=== PATIENT | female | born 1970 | race Caucasian/White ===

== ENCOUNTER 2020-09-07 14:40 | Outpatient (CLI) | payer SELFPAY ==
--- NOTE | 2020-09-07 15:17 | USCV_ITS ---
Roberta Benito Age: 49 Gender: F : 1970 Exam Date: 09/07/2020 15:39 Ordering Phys: Elsy Barton Technologist: Evelyne Calvert Exam Location: [facility] [place] [facility] [place]ication: pain in left leg HISTORY: Lower extremity pain. PROCEDURES: Venous duplex imaging was performed in only the left lower extremity. The following venous structures were evaluated: common femoral vein, profunda vein, proximal portion of the greater saphenous vein, superficial femoral vein, and the popliteal vein. In addition, the posterior tibial and peroneal trunk were evaluated. Serial compression, augmentation maneuvers, and spectral Doppler flow evaluation were performed. FINDINGS: DVT seen within the left lower extremity in the popliteal and peroneal veins CONCLUSIONS DVT Left popliteal and peroneal veins Patient transferred to ER for further evaluation at time of exam Deepak Sauceda MD (Electronically Signed) Final Date: 07 September 2020 15:56 S
== END 2020-09-07 14:41 | disposition home or self-care (01) ==
LOC: RAD 14:46
PROVIDERS: PCP Nurse Practitioner Family; Visit Provider Nurse Practitioner Family
DX: I82.452 Acute embolism and thrombosis of left peroneal vein; I82.432 Acute embolism and thrombosis of left popliteal vein
CPT/HCPCS: 93971

== ENCOUNTER 2020-09-07 15:47 | Emergency (ER) | payer SELFPAY ==
[2020-09-07 15:50] VITALS: BP 152/90; PULSE 99; RESP 15; TEMP 36.8; O2SAT 99; BMI 31.7
[2020-09-07 15:54] VITALS: BP 133/92; PULSE 97; PULSE 98; RESP 18; O2SAT 97
--- NOTE | 2020-09-07 16:01 | ED_ITS ---
HPI - Extremity Problem General: Chief complaint: Extremity Problem,Nontraumatic Stated complaint: blood clot in left leg Time Seen by Provider: 09/07/20 15:54 History of Present Illness: HPI Narrative: 43-year-old female was seen in primary care doctor's office today and sent for a venous duplex of the left lower leg. There is a moderate amount of swelling and some discomfort she denies any chest pain or shortness of breath vitals are stable she has normal oxygen saturation. She not previously had a DVT not on any anticoagulants the only thing she did recently was a 2-hour car ride. Swelling began over the last 4 days. MD Complaint: extremity swelling Onset (ago): day(s) (4) Pain Consistency: constant Location: left and lower extremity Quality: aching, dull and constant Radiation: none Relieving factors: elevation Exacerbating factors: weight bearing, walking and palpation Associated symptoms: Deny arthralgias, chest pain, fever(s), myalgias, rash or short of breath Review of Systems Const: Denies: fever(s) ENMT: Denies: throat pain, ear or mastoid pain, nasal discharge or nasal congestion Card: Denies: chest pain Resp: Denies: dyspnea, productive cough or non-productive cough GI: Denies: abdominal pain, nausea, vomiting, hematemesis, coffee ground emesis, diarrhea, constipation, bloating, hematochezia or melena : Denies: flank pain, difficulty voiding, dysuria, urinary frequency or urinary urgency Skin/Breast: Denies: rash PFSH ED PFSH: Social History Smoking and tobacco status: current every day smoker cigarettes Packs smoked per day: 0.25 Alcohol intake: current Alcohol intake frequency: few times a month Substance/Drug Use: current Substance/Drug use frequency: few times a month Substance/Drug use type: Marijuana Physical Exam Const: COMMON NORMALS: no acute distress GENERAL APPEARANCE: cooperative and comfortable ORIENTATION/CONSCIOUSNESS: Yes awake, Yes oriented to person, Yes oriented to place and Yes oriented to time HENMT: COMMON NORMALS: normocephalic, atraumatic and hearing grossly normal bilaterally HEAD & SCALP: normocephalic and atraumatic Neck/C-Spine: COMMON NORMALS: no JVD Resp: COMMON NORMALS: normal respiratory effort, No retractions, No use of accessory muscles and clear to auscultation bilaterally AUSCULTATION: clear to auscultation bilaterally Cardio: COMMON NORMALS: no JVD, regular rate, regular rhythm and No murmurs present (Cardio) RATE: regular rate RHYTHM: regular rhythm Extremity: NARRATIVE EXTREMITY EXAM: 2+ edema of the left lower leg. Positive Homans. Neuro: SENSORIUM/ORIENTATION: Yes oriented to person, Yes oriented to place and Yes oriented to time Skin: COMMON NORMALS: no rashes or lesions noted GENERAL SKIN EXAM: no rashes or lesions noted Course Vital Signs: Vital signs: Vital Signs Temperature 98.2 F 09/07/20 15:50 Pulse Rate 99 09/07/20 15:50 Respiratory Rate 15 09/07/20 15:50 Blood Pressure 152/90 09/07/20 15:50 Pulse Oximetry 99 09/07/20 15:50 MDM - Extremity (Nontraumatic) MDM Narrative: Medical decision making narrative: Definitive study is already been concluded. Is reviewed and is in the chart. Does show she has a DVT. We will start her on Eliquis. Follow-up with primary care return if develop shortness of breath or chest pain Discharge Plan Discharge Patient Disposition: Home Clinical Impression: Deep vein thrombosis of lower extremity Qualifiers: Affected thrombotic vein of extremity: popliteal Chronicity: acute Laterality: left Qualified Code(s): I82.432 - Acute embolism and thrombosis of left popliteal vein Condition: Stable Prescriptions: New Eliquis DVT-PE Treat 30D Start 5 mg (74 tabs) tablets,dose pack See Rx Instructions .ROUTE .COMPLEX Qty: 74 RF: 0 Discharge Orders: Discharge ED (Routine); Ordered 09/07/20 Ordered By: Terrance Wilkins Referrals: Elsy Barton ASSISTANT PRODUCTION EDITOR [Primary Care Provider] - Discharge Diet: Usual diet Discharge Activity: Increase activity as tolerated Activity Restrictions/Additional Instructions: Take Eliquis as prescribed on the package. Follow-up with your primary care doctor within the next 1 to 2 weeks for continuation of the Eliquis. You should anticipate being on the Eliquis for a minimum of 6 to 9 months. Coding Level of Care Code ED Control Equipment Electrician for Neftali Fwd Exam Detailed
[2020-09-07] MEDS: enoxaparin 100 mg/mL Syringe SUBCUT (16:19)
[2020-09-07 16:22] VITALS: BP 133/92; PULSE 96; RESP 18; TEMP 36.8; O2SAT 96
== END 2020-09-07 16:24 | disposition home or self-care (01) ==
LOC: ER 16:23
PROVIDERS: Emergency Provider Family Medicine; PCP Nurse Practitioner Family
DX: I82.432 Acute embolism and thrombosis of left popliteal vein (principal); F17.210 Nicotine dependence, cigarettes, uncomplicated
CPT/HCPCS: 12345; 96372; 99281; 99283; J1650

== ENCOUNTER → 2022-05-09 13:44 | Outpatient (BNVA) | payer MEDICAID, SELFPAY | PROVIDERS: PCP Nurse Practitioner Family; Visit Provider Thoracic Surgery (Cardiothoracic Vascular Surgery) | DX: I96 Gangrene, not elsewhere classified (principal); L97.822 Non-pressure chronic ulcer of other part of left lower leg with fat layer exposed | CPT/HCPCS: 99213 ==

== ENCOUNTER 2022-10-08 08:31 | Oncology outpatient (recurring) (ONCR) | payer MEDICAID, SELFPAY | END 2022-10-09 23:59 | disposition home or self-care (01) | PROVIDERS: PCP Nurse Practitioner Family; Visit Provider Internal Medicine Medical Oncology | DX: Z86.718 Personal history of other venous thrombosis and embolism (principal) ==

== ENCOUNTER 2022-10-15 13:01 | Oncology outpatient (recurring) (ONCR) | payer MEDICAID, SELFPAY ==
[2022-10-15 15:30] LABS: Basophils # 0.1 10^3/uL (0.0-0.1); Basophils % 0.5 %; Eosinophils # 0.2 10^3/uL (0.0-0.8); Eosinophils % 1.9 %; Hematocrit 41.9 % (37.0-47.0); Hemoglobin 13.2 g/dL (11.5-15.3); Lymphocytes # 2.5 10^3/uL (0.8-4.8); Lymphocytes % 26.9 %; Mean Corpuscular HGB Conc 31.5 g/dL (30.0-36.0); Mean Corpuscular Hemoglobin 30.8 pg (28.0-34.0); Mean Corpuscular Volume 97.9 fl (81-99); Mean Platelet Volume 9.7 fL (7.4-10.4); Monocytes # 0.5 10^3/uL (0.2-0.9); Monocytes % 5.1 %; Neutrophils # 6.03 10^3/uL (1.8-7.7); Neutrophils % 65.3 %; Nucleated Red Blood Cells % 0 %; Platelet Count 320 10^3/cmm (130-400); Red Blood Count 4.28 10^6/uL (4.1-5.3); Red Cell Distribution Width 12.3 % (12.1-15.1); White Blood Count 9.3 10^3/uL (4.0-10.0)
[2022-10-15 15:58] LABS: Alanine Aminotransferase 15 U/L (0-33); Albumin Level 3.7 g/dL (3.5-5.2); Alkaline Phosphatase 65 U/L (35-105); Anion Gap 14.6 (5-19); Aspartate Amino Transferase 14 U/L (0-32); Blood Urea Nitrogen 9 mg/dL (6-20); Carbon Dioxide 24 mmol/L (22-29); Chloride 104 mmol/L (98-107); Globulin 2.6 g/dL (1.3-4.6); Glomerular Filtration Rate 105.4 mL/min (90-130); Glucose 107 mg/dL (65-115); Osmolality Calculated 287 mOsm/kg (285-295); Potassium 3.6 mmol/L (3.5-5.1); Sodium 139 mmol/L (136-145); Thyroid Stimulating Hormone 0.57 uIU/mL (0.27-4.20); Total Bilirubin 0.2 mg/dL (0.15-1.2); Total Protein 6.3 g/dL (6.6-8.7)
[2022-10-18 02:20] LABS: CARDIOLIPIN AB (IGA) 2.6 APL-U/mL; CARDIOLIPIN AB (IGG) <2.0 GPL-U/mL; CARDIOLIPIN AB (IGM) <2.0 MPL-U/mL
[2022-10-18 03:44] LABS: PROTEIN C, ACTIVITY 146 % normal (70-180)
[2022-10-19 07:10] LABS: Antithrombin III Activity 109 % normal (80-135)
[2022-10-20 21:09] LABS: PROTHROMBIN (FACTOR II) 20210G NEGATIVE
[2022-10-20 22:44] LABS: Beta 2 Glycoprotein IGA 2.6 U/mL (<20.0); Beta 2 Glycoprotein IGG <2.0 U/mL (<20.0); Beta 2 Glycoprotein IGM <2.0 U/mL (<20.0)
[2022-10-22 17:40] LABS: Factor 5 Leiden Mutation NEGATIVE
== END 2022-11-09 23:59 | disposition home or self-care (01) ==
LOC: ONCMED 13:04
PROVIDERS: PCP Nurse Practitioner Family; Visit Provider Internal Medicine Medical Oncology
DX: I82.409 Acute embolism and thrombosis of unspecified deep veins of unspecified lower extremity (principal); R53.83 Other fatigue; Z79.01 Long term (current) use of anticoagulants
CPT/HCPCS: 36415; 80053; 81241; 84443; 85025; 85210; 85300; 85303; 86146; 86147

== ENCOUNTER 2023-07-29 03:05 | Emergency (ER) | payer MEDICAID, SELFPAY ==
[2023-07-29 03:14] VITALS: BP 108/72; PULSE 115; RESP 20; TEMP 37.8; O2SAT 97; BMI 25.8
--- NOTE | 2023-07-29 04:08 | USR_ITS ---
PROCEDURE INFORMATION: Exam: US Duplex Left Lower Extremity Veins, Limited Exam date and time: 07/29/2023 5:15 AM Age: 52 years old Clinical indication: Pain; Leg, upper and leg, lower; Left; Additional info: Thigh pain swelling HX dvt TECHNIQUE: Imaging protocol: Real-time duplex ultrasound of the left extremity with 2-D gasca scale, color Doppler flow and spectral waveform analysis including responses to compression and other maneuvers (when performed) with image documentation. Limited exam focused on the left lower extremity veins. COMPARISON: No relevant prior studies available. FINDINGS: Left deep veins: Unremarkable. The common femoral, femoral, proximal profunda femoral and popliteal veins are patent without thrombus. Normal Doppler waveforms. Normal compressibility and/or augmentation response. Superficial veins: Unremarkable. Saphenofemoral junction is patent without thrombus. Soft tissues: Unremarkable. US/CV venous duplex [facility] [id number] IMPRESSION: No evidence of deep vein thrombosis.
[2023-07-29 04:39] LABS: Basophils # 0.1 10^3/uL (0.0-0.1); Basophils % 0.5 %; Eosinophils % 0.1 %; Hematocrit 44.8 % (36-47); Mean Corpuscular HGB Conc 32.4 g/dL (30-55); Mean Corpuscular Hemoglobin 31.9 pg (27-33); Mean Corpuscular Volume 98.5 fl (85-98); Mean Platelet Volume 9.8 fL (7.4-10.4); Monocytes # 1.4 10^3/uL (0.2-0.9); Monocytes % 5.9 %; Neutrophils # 21.51 10^3/uL (1.8-7.7); Neutrophils % 88.6 %; Nucleated Red Blood Cells % 0 %; Platelet Count 264 10^3/cmm (157-399); Red Blood Count 4.55 10^6/uL (3.85-5.65); Red Cell Distribution Width 12.5 % (12.1-15.1); White Blood Count 24.27 10^3/uL (3.29-11.43)
[2023-07-29 04:40] VITALS: PULSE 106; RESP 18; O2SAT 98
--- NOTE | 2023-07-29 04:46 | ED_ITS ---
HPI - General Adult 2 General: Chief complaint: General Medical Stated complaint: Left leg pain, possible DVT , fever, chills Time Seen by Provider: 07/29/23 04:02 History of Present Illness: 52-year-old female with a history of DVT . She is on rivaroxaban she says. She complains of a couple of days of left lower extremity pain, mainly to her groin. She is also having fevers. She had some diarrhea yesterday. No cough. No other respiratory symptoms. No chest pain. She states she has been taking her xarelto as prescribed. Associated symptoms: Reports nausea and rash; Deny chest pain, confusion, dyspnea, headache(s), palpitations or vomiting Review of Systems 2 Const: Reports: fever(s) and chills; Denies: body aches Eyes: Denies: change in vision ENMT: Denies: throat pain Card: Denies: chest pain or palpitations Resp: Denies: dyspnea, productive cough, non-productive cough or wheezing GI: Reports: nausea and diarrhea; Denies: abdominal pain, vomiting or hematochezia : Denies: difficulty voiding Skin/Breast: Reports: rash and erythema (LLE) Neuro: Denies: headache(s), weakness in extremities, dizziness or confusion PFSH ED 2 PFSH: Medical History (Updated 07/29/23 @ 05:38 by Keon Cyr DO) Venous stasis dermatitis of left lower extremity Deep vein thrombosis of both lower extremities Surgical History (Updated 10/08/22 @ 09:27 by Andrade Nguyen MD) History of tubal ligation History of appendectomy (12/2021) Social History (Updated 10/08/22 @ 08:42 by Danica Key LPN) Smoking and tobacco/nicotine status: current every day tobacco/nicotine user cigarettes Packs smoked per day: 0.25 Years cigarettes smoked: 30 Alcohol intake: current Alcohol intake frequency: few times a month Substance/Drug Use: current Substance/Drug use frequency: few times a month Physical Exam 2 Const: COMMON NORMALS: no acute distress GENERAL APPEARANCE: cooperative and ill appearing (mildly); not frail appearing HENMT: COMMON NORMALS: normocephalic, atraumatic and Normal external nose present HEAD & SCALP: normocephalic and atraumatic FACE & SINUS: normal facial exam and face symmetric NOSE: Normal external nose present Eye: COMMON NORMALS: Equal, round and reactive pupils present and EOMs intact bilaterally PUPIL: Yes Equal, round and reactive pupils present Neck/C-Spine: GENERAL: Yes trachea midline Chest: CHEST: Yes Symmetrical chest wall rise Resp: COMMON NORMALS: normal respiratory effort, No retractions, No use of accessory muscles and clear to auscultation bilaterally AUSCULTATION: clear to auscultation bilaterally Cardio: COMMON NORMALS: regular rhythm RATE: tachycardic RHYTHM: regular rhythm GI: COMMON NORMALS: Normal to inspection, nondistended, normoactive bowel sounds present Extremity: NARRATIVE EXTREMITY EXAM: Examination of the left lower extremity reveals tenderness in the groin. There is some pain with hip movement. There is no deformity. Pulses are present. There is one plus edema bilaterally. It is symmetrical. Redness noted to thee this the left lower extremity. Warmth is maintained. Neuro: LEVI COMA SCALE: document GCS findings Levi coma scale eye opening: Spontaneous [place] coma scale verbal response: Orientated [place] coma scale motor response: Obey commands [place] coma scale total score: 15 S ENSORY EXAM: Yes extremities (intact) Psych: COMMON NORMALS: speech normal SPEECH: Yes normal speech Skin: COMMON NORMALS: no rashes or lesions noted GENERAL SKIN EXAM: no rashes or lesions noted Course 2 Vital Signs: Vital signs: Vital Signs Temperature 100.1 F H 07/29/23 03:14 Pulse Rate 113 H 07/29/23 06:20 Respiratory Rate 18 07/29/23 05:55 Blood Pressure 106/63 07/29/23 06:20 Pulse Oximetry 94 07/29/23 06:20 Oxygen Delivery Me thod Room Air 07/29/23 06:20 [facility] - General Adult Medical Decision Making Patient has a temperature 100.1. She is mildly tachycardic. She is not having chest pain. CBC shows a white blood cell count of 24. Otherwise not remarkable. Other labs are pending. Ultrasound of the right lower extremity is pending. There is no significant pain with hip movement. Ultrasound is negative for DVT. There are several swollen lymph nodes in the left inguinal region likely a source of her pain. With the rash associated to her lower extremity, increased white blood cell count, wouldn't indicate Cellulitis of the left lower extremity with lymphadenitis. We will treat with antibiotics. She has had vancomycin here. She will go home on doxycycline. Lab Data 07/29/23 04:26 07/29/23 06:02 Radiology Impressions Venous Duplex 07/29/23 04:08 IMPRESSION: No evidence of deep vein thrombosis. Laboratory Results WBC 24.27 10^3/uL (3.29-11.43) H 07/29/23 04:26 RBC 4.55 10^6/uL (3.85-5.65) 07/29/23 04:26 Hgb 14.50 g/dL (11.27-16.99) 07/29/23 04:26 Hct 44.8 % (36-47) 07/29/23 04:26 MCV 98.5 fl (85-98) H 07/29/23 04:26 MCH 31.9 pg (27-33) 07/29/23 04:26 MCHC 32.4 g/dL (30-55) 07/29/23 04:26 RDW 12.5 % (12.1-15.1) 07/29/23 04:26 Plt Count 264 10^3/cmm (157-399) 07/29/23 04:26 MPV 9.8 fL (7.4-10.4) 07/29/23 04:26 Neut % (Auto) 88.6 % 07/29/23 04:26 Lymph % (Auto) 4.0 % 07/29/23 04:26 [place] % (Auto) 5.9 % 07/29/23 04:26 Eos % (Auto) 0.1 % 07/29/23 04:26 Baso % (Auto) 0.5 % 07/29/23 04:26 Neut # (Auto) 21.51 10^3/uL (1.8-7.7) H 07/29/23 04:26 Lymph # (Auto) 1.0 10^3/uL (0.8-4.8) 07/29/23 04:26 [place] # (Auto) 1.4 10^3/uL (0.2-0.9) H 07/29/23 04:26 Eos # (Auto) 0.0 10^3/uL (0.0-0.8) 07/29/23 04:26 Baso # (Auto) 0.1 10^3/uL (0.0-0.1) 07/29/23 04:26 Nucleated RBC % (auto) 0 % 07/29/23 04:26 Nucleated RBCs # 0.0 /100WBC 07/29/23 04:26 Sodium 130 mmol/L (136-145) L 07/29/23 06:02 Potassium 3.8 mmol/L (3.5-5.1) 07/29/23 06:02 Chloride 96 mmol/L (98-107) L 07/29/23 06:02 Carbon Dioxide 23 mmol/L (22-29) 07/29/23 06:02 Anion Gap 14.8 (5-19) 07/29/23 06:02 BUN 12 mg/dL (6-20) 07/29/23 06:02 Creatinine 0.8 mg/dL (0.5-0.9) 07/29/23 06:02 GFR Calculation 75.6 mL/min (90-130) L 07/29/23 06:02 Glucose 106 mg/dL (65-115) 07/29/23 06:02 Calculated Osmolality 270 mOsm/kg (285-295) L 07/29/23 06:02 Lactic Acid 1.0 mmol/L (0.5-2.2) 07/29/23 05:00 Calcium 9.3 mg/dL (8.5-10.5) 07/29/23 06:02 Total Bilirubin 0.6 mg/dL (0.15-1.2) 07/29/23 06:02 AST 26 U/L (0-32) 07/29/23 06:02 ALT 33 U/L (0-33) 07/29/23 06:02 Alkaline Phosphatase 97 U/L (35-105) 07/29/23 06:02 C-Reactive Protein 66.9 mg/L (0.0-4.9) H 07/29/23 06:02 NT-Pro-B Natriuret Pep 90 pg/mL (0-125) 07/29/23 06:02 Total Protein 6.7 g/dL (6.6-8.7) 07/29/23 06:02 Albumin 3.8 g/dL (3.5-5.2) 07/29/23 06:02 Globulin 2.9 g/dL (1.3-4.6) 07/29/23 06:02 HCG, Qual Negative (Negative) 07/29/23 04:26 SARS-CoV-2 Ag (Rapid) negative (Negative) 07/29/23 05:00 All radiology interpretation(s) finalized by discharge Discharge Plan Discharge Patient Disposition: Home Clinical Impression: Cellulitis of left leg, Acute inguinal lymphadenitis Condition: Stable Prescriptions: New hydrocodone-acetaminophen 5-325 mg tablet 1 tab PO Q8H PRN (Reason: pain) Qty: 7 0RF doxycycline hyclate 100 mg tablet 100 mg PO BID 10 Days Qty: 20 0RF No Action Xarelto 10 mg tablet 10 mg PO DAILY furosemide [Lasix] 20 mg tablet 20 mg PO DAILY vitamin B complex Tablet 1 tab PO DAILY betamethasone valerate 0.1 % ointment 1 applic topical BID Qty: 45 0RF Rx Instructions: Apply twice daily to affected area no more than 2 weeks per month. Not for face or skin folds. Discharge Orders: Discharge ED (Routine); Ordered 07/29/23 Ordered By: Keon Cyr Patient Instructions: Cellulitis (ED), Adenitis (ED), Opioid Safety, Pain Management Activity Restrictions/Additional Instructions: Antibiotics as directed. Ice may help with pain. Keep leg elevated. See your doctor this week for follow-up. Return for continued fever despite 2-3 doses of antibiotics, worsening pain despite treatment, vomiting liquids or medications, other concerning symptoms. Coding Level of Care Code ED Surgical Tech for Neftali Fink
[2023-07-29 04:50] LABS: HCG, Serum Qual Negative (Negative)
--- NOTE | 2023-07-29 05:01 | PC.NURSE ---
pt placed in a gown at this time. pt was up to the bathroom but unable to give a urine sample.
[2023-07-29 05:34] LABS: SARS Covid-2 Antigen negative (Negative)
[2023-07-29 05:55] VITALS: BP 106/75; PULSE 113; RESP 18; O2SAT 95
[2023-07-29] MEDS: vancomycin 1,250 MG/250 ML PIGGYBACK 250 MG IV (06:02)
[2023-07-29 06:20] VITALS: BP 106/63; PULSE 113; O2SAT 94
[2023-07-29 06:47] LABS: Alanine Aminotransferase 33 U/L (0-33); Albumin Level 3.8 g/dL (3.5-5.2); Alkaline Phosphatase 97 U/L (35-105); Anion Gap 14.8 (5-19); Aspartate Amino Transferase 26 U/L (0-32); Blood Urea Nitrogen 12 mg/dL (6-20); C Reactive Protein 66.9 mg/L (0.0-4.9); Calcium 9.3 mg/dL (8.5-10.5); Carbon Dioxide 23 mmol/L (22-29); Chloride 96 mmol/L (98-107); Globulin 2.9 g/dL (1.3-4.6); Glomerular Filtration Rate 75.6 mL/min (90-130); Glucose 106 mg/dL (65-115); NT Pro B Type Natriuretic Pept 90 pg/mL (0-125); Osmolality Calculated 270 mOsm/kg (285-295); Potassium 3.8 mmol/L (3.5-5.1); Sodium 130 mmol/L (136-145); Total Bilirubin 0.6 mg/dL (0.15-1.2); Total Protein 6.7 g/dL (6.6-8.7)
== END 2023-07-29 07:41 | disposition home or self-care (01) ==
PROVIDERS: Emergency Provider Emergency Medicine
DX: L03.116 Cellulitis of left lower limb (principal); L04.1 Acute lymphadenitis of trunk; Z11.52 Encounter for screening for COVID-19; F17.210 Nicotine dependence, cigarettes, uncomplicated
CPT/HCPCS: 36415; 80053; 83605; 83880; 84703; 85025; 86140; 87040; 87426; 93971; 96374; 99284; J3370

== ENCOUNTER 2024-07-27 15:41 | Emergency (ER) | payer MEDICAID, SELFPAY ==
[2024-07-27 15:42] VITALS: BP 129/87; PULSE 90; RESP 16; TEMP 36.7; O2SAT 97
--- NOTE | 2024-07-27 15:43 | USR_ITS ---
PROCEDURE INFORMATION: Exam: US Duplex Right Lower Extremity Veins, Limited Exam date and time: 07/27/2024 3:55 PM Age: 53 years old Clinical indication: Pain; Leg, lower; Right; Patient HX: H/o dvt; Additional info: Right leg pain TECHNIQUE: Imaging protocol: Real-time duplex ultrasound of the right extremity with 2-D gasca scale, color Doppler flow and spectral waveform analysis including responses to compression and other maneuvers (when performed) with image documentation. Limited exam was focused on the right lower extremity veins. COMPARISON: No relevant prior studies available. FINDINGS: Right deep veins: . The common femoral, proximal profunda appear normal. There is nonocclusive thrombus in the mid femoral vein extending into the popliteal vein Superficial veins: Greater saphenous vein at the saphenofemoral junction is patent without thrombus. Soft tissues: Unremarkable. US/[place] [id number] IMPRESSION: Nonocclusive thrombus in the mid and distal femoral vein extending into the popliteal vein.
--- NOTE | 2024-07-27 16:18 | ED_ITS ---
HPI - Extremity Problem General: Chief complaint: Extremity Problem,Nontraumatic Stated complaint: pain in rt leg/ possible blood clot Time Seen by Provider: 07/27/24 16:03 Source: patient Mode of arrival: ambulatory Limitations: no limitations History of Present Illness: 53-year-old female with history of DVTs in the past. She states that she has not been taking her Xarelto for quite some time states started having right leg pain less than a week ago started taking her Xarelto 10 mg states that her right leg swollen and painful like for previous DVT she denies any chest pain shortness of breath Associated symptoms: Deny chest pain, fever(s) or rash Related Data Home Medications Medication Instructions Recorded Confirmed furosemide 20 mg tablet (Lasix) 20 mg PO DAILY 10/08/22 10/08/22 vitamin B complex 1 tab PO DAILY 10/08/22 10/08/22 Previous Rx's Medication Instructions Recorded betamethasone valerate 0.1 % 1 applic topical BID #45 grams 07/23/22 topical ointment hydrocodone 5 mg-acetaminophen 325 1 tab PO Q8H PRN pain #7 tabs 07/29/23 mg tablet rivaroxaban 15 mg tablet (Xarelto) 15 mg PO BID 21 days #42 tabs 07/27/24 rivaroxaban 20 mg tablet (Xarelto) 20 mg PO DAILY #60 tabs 07/27/24 Allergies Allergy/AdvReac Type Severity Reaction Status Date / Time No Known Allergies Allergy Verified 07/27/24 15:46 Review of Systems Const: Denies: fever(s), chills, body aches or change in appetite ENMT: Denies: throat pain or dental pain Card: Denies: chest pain Resp: Denies: dyspnea GI: Denies: abdominal pain, nausea, vomiting or diarrhea Musc: Reports: extremity pain and extremity swelling; Denies: neck pain or back pain Skin/Breast: Denies: rash Neuro: Denies: headache(s) PFSH ED PFSH: Medical History (Updated 07/27/24 @ 16:15 by Facundo Bosch MD) Venous stasis dermatitis of left lower extremity Deep vein thrombosis of both lower extremities Surgical History (Updated 10/08/22 @ 09:27 by Andrade Nguyen MD) History of tubal ligation History of appendectomy (12/2021) Social History Smoking and tobacco/nicotine status: current every day tobacco/nicotine user cigarettes Packs smoked per day: 0.25 Years cigarettes smoked: 30 Alcohol intake: current Alcohol intake frequency: few times a month Substance/Drug Use: current Substance/Drug use frequency: few times a month Physical Exam Const: COMMON NORMALS: no acute distress, patient oriented x3 and healthy appearing HENMT: COMMON NORMALS: normocephalic and atraumatic HEAD & SCALP: normocephalic and atraumatic Eye: COMMON NORMALS: Equal, round and reactive pupils present and EOMs intact bilaterally PUPIL: Yes Equal, round and reactive pupils present Neck/C-Spine: COMMON NORMALS: full ROM and supple Chest: COMMONS NORMALS: normal inspection of the chest Resp: COMMON NORMALS: normal respiratory effort Cardio: COMMON NORMALS: regular rate RATE: regular rate Extremity: COMMON NORMALS: full ROM NARRATIVE EXTREMITY EXAM: Tenderness noted to right leg with some swelling Neuro: COMMON NORMALS: patient oriented x3, moves all extremities and no focal motor deficits Psych: COMMON NORMALS: mental status grossly normal, Normal thought process present and cooperative THOUGHT PROCESS: Normal thought process present Skin: COMMON NORMALS: no rashes or lesions noted and no wounds GENERAL SKIN EXAM: no rashes or lesions noted Course Vital Signs: Vital signs: Vital Signs Temperature 98.0 F 07/27/24 15:42 Pulse Rate 90 07/27/24 15:42 Respiratory Rate 16 07/27/24 15:42 Blood Pressure 129/87 07/27/24 15:42 Pulse Oximetry 97 07/27/24 15:42 Oxygen Delivery Me thod Room Air 07/27/24 15:42 MDM - Extremity (Nontraumatic) Medical Decision Making Patient presents with right leg pain and swelling ultrasound does show DVT in her right leg we will restart her Xarelto with the 21-day increased dose and then 20 mg after the 20 days she has no shortness of breath no signs of PE here she is return if she has symptoms without follow-up with her PCP. Medical Records I reviewed the patient's medical records. All radiology interpretation(s) finalized by discharge Discharge Plan Discharge Patient Disposition: Home Clinical Impression: Deep vein thrombosis of lower extremity Condition: Stable Prescriptions: New Xarelto 15 mg tablet 15 mg PO BID 21 Days Qty: 42 0RF Rx Instructions: must administer with a meal/food Xarelto 20 mg tablet 20 mg PO DAILY Qty: 60 0RF Rx Instructions: must administer with a meal/food/ start after first 21 day tabs Discontinued Xarelto 10 mg tablet 10 mg PO DAILY No Action furosemide [Lasix] 20 mg tablet 20 mg PO DAILY vitamin B complex Tablet 1 tab PO DAILY betamethasone valerate 0.1 % ointment 1 applic topical BID Qty: 45 0RF Rx Instructions: Apply twice daily to affected area no more than 2 weeks per month. Not for face or skin folds. hydrocodone-acetaminophen 5-325 mg tablet 1 tab PO Q8H PRN (Reason: pain) Qty: 7 0RF Discharge Orders: Discharge ED (Routine); Ordered 07/27/24 Ordered By: Facundo Bosch Discharge Diet: Advance as tolerated Discharge Activity: Resume usual activity Patient Instructions: Deep Vein Thrombosis (ED) Coding Level of Care Code ED Electrical Wiring Lineman for Neftali Fink
== END 2024-07-27 16:31 | disposition home or self-care (01) ==
PROVIDERS: Emergency Provider Emergency Medicine
DX: I82.401 Acute embolism and thrombosis of unspecified deep veins of right lower extremity (principal); F17.210 Nicotine dependence, cigarettes, uncomplicated
CPT/HCPCS: 93971; 99284